=== PATIENT | male | born 1995 | race Caucasian/White ===

== ENCOUNTER 2017-09-14 00:48 | Observation (INO) | payer OTHER ==
[2017-09-14] VITALS (7 sets, daily range): BP systolic 115–136; BP diastolic 70–82; PULSE 63–93; TEMP 36.5–37; O2SAT 94–98; Ht 190.5 cm; Wt 122.9 kg
[~2017-09-14] VITALS: Ht 190.5 cm; Wt 122.9 kg
[2017-09-14] MEDS ORDERED: MoRPHine SULFATE 4 MG/ML 1 ML CARP\\VIAL IV STA (01:04)
[2017-09-14] MEDS ORDERED: SODIUM CHLORIDE 0.9% 1000ML 1,000 ML IV STA ×3 (01:04→02:44)
[2017-09-14] MEDS ORDERED: ONDANSETRON INJ 2 MG/ML 2 ML VIAL IV STA (01:04)
[2017-09-14 01:24] LABS: BASO % 0.2 %; BASO ABS # 0.02 K/uL (0-0.2); EOS % 1.3 %; EOS ABS # 0.15 K/uL (0-0.5); IG# 0.05 K/uL (0.00-0.02); LYMPH % 22.2 %; LYMPH ABS # 2.65 K/uL (1.2-3.4); MEAN CELL VOLUME 83.7 fL (80-100); MEAN CORPUSCULAR HEMOGLOBIN 29.9 pg (25-34); MEAN CORPUSCULAR HGB CONC 35.7 g/dl (32-36); MEAN PLATELET VOLUME 10.7 fL (7.4-10.4); MONO % 7.6 %; MONO ABS # 0.91 K/uL (0.11-0.59); NEUT % 68.3 %; NEUT ABS # 8.16 K/uL (1.4-6.5); PLATELET COUNT 255 K/uL (130-400); RED CELL DISTRIBUTION WIDTH CV 12.3 % (11.5-14.5); RED CELL DISTRIBUTION WIDTH SD 37.5 fL (36.4-46.3); WHITE BLOOD COUNT 11.94 K/uL (4.8-10.8)
[2017-09-14] MEDS ORDERED: DiphenhydrAMINE HCL 50 MG/ML VIAL IV STA (01:40)
[2017-09-14] MEDS ORDERED: METOCLOPRAMIDE HCL INJ 5 MG/ML 2 ML VIAL IV STA (01:40)
[2017-09-14 01:51] LABS: ALBUMIN 4.3 gm/dl (3.4-5.0); CALCIUM 9.4 mg/dl (8.5-10.1); CREATININE 0.94 mg/dl (0.60-1.40); POTASSIUM 3.5 mmol/L (3.5-5.1)
[2017-09-14 01:54] LABS: TOTAL PROTEIN 7.9 gm/dl (6.4-8.2)
[2017-09-14] MEDS ORDERED: OPTIRAY 320 IV PRN (02:00)
[2017-09-14] MEDS ORDERED: CEFOXITIN 2000MG/60 ML D5W IV STA (02:39)
[2017-09-14] MEDS ORDERED: CEFOXITIN SOD 1 GM VIAL ONE (02:43)
[2017-09-14] MEDS ORDERED: NURSING VERBAL MED ORDER ONE ×2 (03:00→13:15)
[2017-09-14] MEDS ORDERED: MoRPHine SULFATE 4 MG/ML 1 ML CARP\\VIAL ONE (03:07)
[2017-09-14] MEDS ORDERED: MoRPHine SULFATE 2 MG/ML CARP IV PRN (04:00)
[2017-09-14] MEDS ORDERED: ONDANSETRON INJ 2 MG/ML 2 ML VIAL IV PRN ×2 (04:00→10:30)
[2017-09-14] MEDS ORDERED: LACTATED RINGER'S 1000ML 1,000 ML IV SCH (04:30)
[2017-09-14] MEDS ORDERED: IV FLUIDS COMPLETED PRN (04:30)
--- NOTE | 2017-09-14 06:24 | EMERGENCY ROOM VISIT NOTE ---
History First contact with patient: 00:56 Chief Complaint: ABDOMINAL PAIN Stated Complaint: ABD PAIN Nursing Triage Summary: Patient reports abdominal pain that began approx 12 hours ago. Patient reports the pain is in LLQ with some nausea. Patient also reports constipation. History of Present Illness The patient is a 22 year old male who presents to the Emergency Room with complaints of nausea with periumbilical pain is now localized to the right lower quadrant for the past 12 hours. He still has appendix. Pain 5 out of 10. Nothing makes it better or worse. It does not radiate. Patient denies fever, chills, cough, congestion, vomiting, diarrhea, back pain, flank pain, urinary symptoms, testicular penile pain. Review of Systems An 10 system review of systems was completed with positives and pertinent negatives listed in the HPI. Past Medical/Surgical History None Social History Smoking Status: Never Smoker Smokeless Tobacco Use: No Drug Use: none Marital Status: single Occupation Status: [employer] student Current/Historical Medications No Active Prescriptions or Reported Meds Physical Exam Vital Signs Date Time Temp Pulse Resp B/P (MAP) Pulse Ox O2 Delivery O2 Flow Rate FiO2 09/14/17 02:12 88 16 120/69 97 Room Air 09/14/17 00:53 36.9 90 16 158/79 96 Room Air Physical Exam VITALS: Vitals are noted on the nurse's note and reviewed by myself. Vital signs hypertensive. GENERAL: Pleasant male, in no acute distress, nondiaphoretic, well-developed well-nourished. SKIN: Capillary reflex less than 2 seconds. HEENT: Normocephalic. PERRLA. EOMI. Nares patent. Mucous membranes moist. Neck is supple without nuchal rigidity. HEART: Regular rate and rhythm without murmurs gallops or rubs. LUNGS: Clear to auscultation bilaterally without wheezes, rales or rhonchi. No retractions or accessory muscle use. ABDOMEN: Positive bowel sounds x 4. Normal tympanic percussion. Soft, tender to palpation right lower quadrant, no CVA tenderness, without masses or organomegaly. Salazar sign negative. No guarding or rebound tenderness. MUSCULOSKELETAL: No gross musculoskeletal defects. NEURO: Patient was alert and oriented to person place and time. Normal sensation to light and sharp touch. No focal neurological deficits. Medical Decision & Procedures Laboratory Results 09/14/17 01:10 Red Blood Count 5.02, Mean Corpuscular Volume 83.7, Mean Corpuscular Hemoglobin 29.9, Mean Corpuscular Hemoglobin Concent 35.7, Mean Platelet Volume 10.7, Neutrophils (%) (Auto) 68.3, Lymphocytes (%) (Auto) 22.2, Monocytes (%) (Auto) 7.6, Eosinophils (%) (Auto) 1.3, Basophils (%) (Auto) 0.2, Neutrophils # (Auto) 8.16, Lymphocytes # (Auto) 2.65, Monocytes # (Auto) 0.91, Eosinophils # (Auto) 0.15, Basophils # (Auto) 0.02 09/14/17 01:10 Test 09/14/17 01:05 09/14/17 01:10 Urine Color YELLOW Urine Appearance CLEAR (CLEAR) Urine pH 6.5 (4.5-7.5) Urine Specific [place] 1.007 (1.000-1.030) Urine Protein NEG (NEG) Urine Glucose (UA) NEG (NEG) Urine Ketones NEG (NEG) Urine Occult Blood NEG (NEG) Urine Nitrite NEG (NEG) Urine Bilirubin NEG (NEG) Urine Urobilinogen NEG (NEG) Urine Leukocyte Esterase NEG (NEG) White Blood Count 11.94 K/uL (4.8-10.8) Red Blood Count 5.02 M/uL (4.7-6.1) Hemoglobin 15.0 g/dL (14.0-18.0) Hematocrit 42.0 % (42-52) Mean Corpuscular Volume 83.7 fL (80-100) Mean Corpuscular Hemoglobin 29.9 pg (25-34) Mean Corpuscular Hemoglobin Concent 35.7 g/dl (32-36) Platelet Count 255 K/uL (130-400) Mean Platelet Volume 10.7 fL (7.4-10.4) Neutrophils (%) (Auto) 68.3 % Lymphocytes (%) (Auto) 22.2 % Monocytes (%) (Auto) 7.6 % Eosinophils (%) (Auto) 1.3 % Basophils (%) (Auto) 0.2 % Neutrophils # (Auto) 8.16 K/uL (1.4-6.5) Lymphocytes # (Auto) 2.65 K/uL (1.2-3.4) Monocytes # (Auto) 0.91 K/uL (0.11-0.59) Eosinophils # (Auto) 0.15 K/uL (0-0.5) Basophils # (Auto) 0.02 K/uL (0-0.2) RDW Standard Deviation 37.5 fL (36.4-46.3) RDW Coefficient of Variation 12.3 % (11.5-14.5) Immature Granulocyte % (Auto) 0.4 % Immature Granulocyte # (Auto) 0.05 K/uL (0.00-0.02) Anion Gap 4.0 mmol/L (3-11) Est Creatinine Clear Calc Drug Dose 178.5 ml/min Estimated GFR () 134.7 Estimated GFR (Non- 116.2 BUN/Creatinine Ratio 19.1 (10-20) Calcium Level 9.4 mg/dl (8.5-10.1) Total Bilirubin 0.7 mg/dl (0.2-1) Direct Bilirubin 0.2 mg/dl (0-0.2) Aspartate Amino Transf (AST/SGOT) 20 U/L (15-37) Alanine Aminotransferase (ALT/SGPT) 49 U/L (12-78) Alkaline Phosphatase 126 U/L (45-117) Total Protein 7.9 gm/dl (6.4-8.2) Albumin 4.3 gm/dl (3.4-5.0) Medications Administered Medications (Trade) Dose Ordered Sig/Nicanor Route Start Time Stop Time Status Last Admin Dose Admin Sodium Chloride 1,000 ml @ 999 mls/hr Q1H1M STAT IV 09/14/17 01:04 09/14/17 02:04 DC 09/14/17 01:10 999 MLS/HR Sodium Chloride 1,000 ml @ 125 mls/hr Q8H STAT IV 09/14/17 01:04 09/14/17 03:55 DC 09/14/17 01:04 125 MLS/HR Ondansetron HCl (Zofran Inj) 4 mg NOW STAT IV 09/14/17 01:04 09/14/17 01:06 DC 09/14/17 01:10 4 MG Morphine Sulfate (MoRPHine SULFATE INJ) 4 mg NOW STAT IV 09/14/17 01:04 09/14/17 01:06 DC 09/14/17 03:09 4 MG Metoclopramide HCl (Reglan Inj) 10 mg NOW STAT IV 09/14/17 01:40 09/14/17 01:42 DC 09/14/17 01:48 10 MG Diphenhydramine HCl (Benadryl Inj) 12.5 mg NOW STAT IV 09/14/17 01:40 09/14/17 01:42 DC 09/14/17 01:49 12.5 MG Cefoxitin Sodium (Mefoxin IV) 2,000 mg STK-MED ONCE .ROUTE 09/14/17 02:43 09/14/17 02:44 DC 09/14/17 02:50 2,000 MG ED Course Prior records/ancillary studies reviewed. Triage Nursing notes reviewed. The patient's history was concerning for abdominal pain. Differential diagnosis: Etiologies such as appendicitis, diverticulitis, PUD, biliary pathology, UTI, pancreatitis, obstruction, mesenteric ischemia, aortic pathology, infections, inflammatory bowel disease, renal colic, as well as others were entertained. Physical examination findings: As above. ER treatment provided: reglan, benadryl, zofran, NSS On reassessment the patient felt better. Diagnostics interpreted by me: The labs revealed Leukocytosis, negative urine Imaging studies: CT concerning for appendicitis Consultation: A consultation was placed with the Dr. Roberson. The case was discussed and diagnostics were reviewed. The patient was evaluated in the ER for further treatment. Exam and history seem consistent with appendicitis. Patient was placed n.p.o. and started antibiotics. Surgery was paged and will admit the patient. Patient is agreeable to treatment plan. By the evaluation outlined above emergent etiologies such as diverticulitis, PUD, biliary pathology, UTI, pancreatitis, obstruction, mesenteric ischemia, aortic pathology,inflammatory bowel disease, renal colic, as well as others were deemed relatively unlikely. The pt informed about the findings as listed above. All questions were answered and pleased with the treatment. Case reviewed with my attending The chart was completed utilizing [employer] voice recognition software. Grammatical errors, random word insertions, pronoun errors, and incomplete sentences are an occassional consequence of this system due to software limitations, ambient noise, and hardware issues. Any formal questions or concerns about the content, text, or information contained within the body of this dictation should be directly addressed to the physician office assistant receptionist for clarification. Medical Decision as above Medication Reconcilliation Current Medication List: was personally reviewed by me Blood Pressure Screening Patient's blood pressure: Elevated blood pressure Blood pressure disposition: Elevated BP felt to be situational Impression Primary Impression: Appendicitis Departure Information Dispostion Being Evaluated By Surgeon Condition GOOD Prescriptions No Active Prescriptions or Reported Meds Referrals Jose Angel Barillas D.O. (PCP) Patient Instructions My [facility] Problem Qualifiers Primary Impression: Appendicitis Appendicitis type: acute appendicitis Acute appendicitis type: with localized peritonitis Qualified Codes: K35.3 - Acute appendicitis with localized peritonitis
--- NOTE | 2017-09-14 07:11 | DIAGNOSTIC IMAGING REPORT ---
ABDOMEN AND PELVIS CT WITH IV CONTRAST CT DOSE: 1232.02 mGy.cm HISTORY: Acute right lower quadrant abdominal pain rlq pain, ? appy TECHNIQUE: Multiaxial CT images of the abdomen and pelvis were performed following the use of intravenous contrast. A dose lowering technique was utilized adhering to the principles of ALARA. COMPARISON STUDY: None. FINDINGS: Lung bases are clear. There is no pneumatosis or pneumoperitoneum. Imaged inferior cardiac chambers are unremarkable. The liver, pancreas and adrenal glands are within normal limits. Contracted gallbladder. Mild splenic likely, 15 cm. Kidneys, ureters and urinary bladder are within normal limits. Aorta appears normal. No bulky adenopathy. No bowel obstruction. Appendix is mildly dilated at 8 mm nicely seen on image 354 series 3 and demonstrates mild periappendiceal inflammatory stranding. Fluid and air is seen within the appendiceal lumen. No associated periappendiceal abscess or perforation. Prominent lymph nodes of the right lower quadrant mesentery measuring up to 10 mm in short axis. IMPRESSION: 1. Air and fluid-filled mildly dilated appendix measures 8 mm in diameter and demonstrates mild periappendiceal inflammatory stranding, suspicious for early acute uncomplicated appendicitis within the appropriate clinical setting. 2. Mildly prominent lymph nodes of the right lower quadrant mesentery are likely reactive. 3. Mild splenomegaly, 15 cm. Electronically signed by: Wolf Grace M.D. 09/14/2017 7:09 AM Dictated Date/Time: 09/14/2017 7:04 AM
[2017-09-14] MEDS ORDERED: CEFOXITIN IV 2,000 MG in DEXTROSE 5% 50ML 50 ML IV SCH (08:00)
[2017-09-14] MEDS ORDERED: LIDOCAINE HCL 1% 20 ML VIAL ONE (08:40)
[2017-09-14] MEDS ORDERED: BACITRACIN OINT 15 GM TUBE ONE (08:40)
[2017-09-14] MEDS ORDERED: BUPIVACAINE 0.5 % 5 MG/1 ML MPF 30ML VIAL ONE (08:40)
[2017-09-14] MEDS ORDERED: PROPOFOL IV EMULSION 10 MG/ML 20 ML VIAL IV ONE (08:45)
[2017-09-14] MEDS ORDERED: SUCCINYLCHOLINE 100MG/5ML SYR IV ONE (08:48)
[2017-09-14] MEDS ORDERED: FENTANYL CITRATE INJ 50 MCG/1 ML 2 ML VIAL ONE ×2 (08:48→09:36)
[2017-09-14] MEDS ORDERED: MIDAZOLAM HCL 1 MG/ML 2ML VIAL ONE (08:49)
--- NOTE | 2017-09-14 09:02 | History & Physical Bridge Note ---
H&P Re-Evaluation Bridge Note: I have examined the patient, reviewed the History & Physical and in the interval since the performance of the History & Physical I have noted the following changes of clinical significance: No changes noted
--- NOTE | 2017-09-14 09:02 | Surgery Consultation ---
Consultation Date of Consultation: Sep 14, 2017. Attending Physician: Alma Roberson MD History of Present Illness pt is a 22 year old male who presents to ER with one day history periumbilical pain and later the pain is located at RLQ, pt had some nausea and vomiting, pt denies fever, no diarrhea, Past Medical/Surgical History Medical Problems: (1) Appendicitis Status: Acute Social History Smoking Status: Never Smoker Smokeless Tobacco Use: No Alcohol Use: none Drug Use: none Marital Status: single Occupation Status: [employer] student Allergies Coded Allergies: No Known Allergies (Unverified , 09/14/17) Home Medications No Active Prescriptions or Reported Meds Current Inpatient Medications Current Inpatient Medications Medications (Trade) Dose Ordered Sig/Nicanor Route Start Time Stop Time Status Last Admin Dose Admin Ioversol (Optiray 320) 100 ml UD PRN IV 09/14/17 02:00 09/18/17 01:59 Morphine Sulfate (MoRPHine SULFATE INJ) 2 mg Q2H PRN IV 09/14/17 04:00 09/28/17 03:59 Ondansetron HCl (Zofran Inj) 4 mg Q6H PRN IV 09/14/17 04:00 10/14/17 03:59 Cefoxitin Sodium 2000 mg/Dextrose 60 ml @ 120 mls/hr Q6H IV 09/14/17 08:00 09/16/17 07:59 Lactated Ringer's 1,000 ml @ 100 mls/hr Q10H IV 09/14/17 04:30 10/14/17 04:29 09/14/17 04:27 100 MLS/HR Miscellaneous (Iv Fluids Completed) 1 ea PRN PRN N/A 09/14/17 04:30 09/14/18 04:29 Review of Systems Constitutional: No fever, No chills, No sweats, No weight loss, No weakness, No fatigue, No problem reported Eyes: No worsening of vision, No eye pain, No redness, No discharge, No diplopia, No problem reported ENT: No hearing loss, No unusual epistaxis, No nasal symptoms, No sore throat, No tinnitus, No dental problems, No trouble swallowing, No problem reported Respiratory: No cough, No sputum, No wheezing, No shortness of breath, No dyspnea on exertion, No dyspnea at rest, No hemoptysis, No problem reported Cardiovascular: No chest pain, No orthopnea, No PND, No edema, No claudication , No palpitations, No problem reported Abdomen: + pain, + nausea, + vomiting Genitourinary - Male: No hematuria, No dysuria, No urinary frequency, No urinary urgency, No urinary hesitancy, No urinary retention, No urinary incontinence, No penile discharge, No lesions, No impotence, No problem reported Neurologic: No memory loss, No paralysis, No weakness, No numbness/tingling, No vertigo, No balance problems, No problem reported Psychiatric: No depression symptoms, No anhedonism, No anxiety, No insomnia, No substance abuse, No problem reported Endocrine: No fatigue, No excessive thirst, No excessive urination, No problem reported Hematologic / Lymphatic: No abnormal bleeding/bruising, No clotting problems, No swollen lymph nodes, No night sweats, No problem reported Integumentary: No rash, No itch, No new/changing skin lesions, No color change , No bleeding, No problem reported Allergic / Immunologic: No environmental allergies, No seasonal allergies, No pet sensitivities, No food allergies, No hives, No frequent infections, No poor healing, No prolonged convalescence, No problem reported Physical Exam Date Time Temp Pulse Resp B/P (MAP) Pulse Ox O2 Delivery O2 Flow Rate FiO2 09/14/17 08:14 36.7 63 16 121/70 (87) 97 Room Air 09/14/17 04:15 36.6 70 18 115/77 97 Room Air 09/14/17 03:52 37.3 86 18 126/72 98 Room Air 09/14/17 02:12 88 16 120/69 97 Room Air 09/14/17 00:53 36.9 90 16 158/79 96 Room Air General Appearance: WD/WN, no apparent distress Head: normocephalic Eyes: normal inspection ENT: normal ENT inspection Neck: supple, no JVD Respiratory/Chest: chest non-tender, lungs clear, normal breath sounds Cardiovascular: regular rate, rhythm, no edema, no gallop, no JVD, no murmur Abdomen/GI: normal bowel sounds, soft, no organomegaly, no pulsatile mass, + tenderness (at RLQ, no rebound pain) Extremities/Musculoskelatal: normal inspection, no calf tenderness, normal capillary refill Neurologic/Psych: no motor/sensory deficits, alert, normal mood/affect, oriented x 3 Skin: normal color, warm/dry, no rash Laboratory Results Last 24 Hours Test 09/14/17 01:05 09/14/17 01:10 Urine Color YELLOW Urine Appearance CLEAR Urine pH 6.5 Urine Specific [place] 1.007 Urine Protein NEG Urine Glucose (UA) NEG Urine Ketones NEG Urine Occult Blood NEG Urine Nitrite NEG Urine Bilirubin NEG Urine Urobilinogen NEG Urine Leukocyte Esterase NEG White Blood Count 11.94 K/uL Red Blood Count 5.02 M/uL Hemoglobin 15.0 g/dL Hematocrit 42.0 % Mean Corpuscular Volume 83.7 fL Mean Corpuscular Hemoglobin 29.9 pg Mean Corpuscular Hemoglobin Concent 35.7 g/dl Platelet Count 255 K/uL Mean Platelet Volume 10.7 fL Neutrophils (%) (Auto) 68.3 % Lymphocytes (%) (Auto) 22.2 % Monocytes (%) (Auto) 7.6 % Eosinophils (%) (Auto) 1.3 % Basophils (%) (Auto) 0.2 % Neutrophils # (Auto) 8.16 K/uL Lymphocytes # (Auto) 2.65 K/uL Monocytes # (Auto) 0.91 K/uL Eosinophils # (Auto) 0.15 K/uL Basophils # (Auto) 0.02 K/uL RDW Standard Deviation 37.5 fL RDW Coefficient of Variation 12.3 % Immature Granulocyte % (Auto) 0.4 % Immature Granulocyte # (Auto) 0.05 K/uL Sodium Level 134 mmol/L Potassium Level 3.5 mmol/L Chloride Level 104 mmol/L Carbon Dioxide Level 26 mmol/L Anion Gap 4.0 mmol/L Blood Urea Nitrogen 18 mg/dl Creatinine 0.94 mg/dl Est Creatinine Clear Calc Drug Dose 178.5 ml/min Estimated GFR () 134.7 Estimated GFR (Non- 116.2 BUN/Creatinine Ratio 19.1 Random Glucose 100 mg/dl Calcium Level 9.4 mg/dl Total Bilirubin 0.7 mg/dl Direct Bilirubin 0.2 mg/dl Aspartate Amino Transf (AST/SGOT) 20 U/L Alanine Aminotransferase (ALT/SGPT) 49 U/L Alkaline Phosphatase 126 U/L Total Protein 7.9 gm/dl Albumin 4.3 gm/dl Assessment & Plan CT scan-FINDINGS: Lung bases are clear. There is no pneumatosis or pneumoperitoneum. Imaged inferior cardiac chambers are unremarkable. The liver, pancreas and adrenal glands are within normal limits. Contracted gallbladder. Mild splenic likely, 15 cm. Kidneys, ureters and urinary bladder are within normal limits. Aorta appears normal. No bulky adenopathy. No bowel obstruction. Appendix is mildly dilated at 8 mm nicely seen on image 354 series 3 and demonstrates mild periappendiceal inflammatory stranding. Fluid and air is seen within the appendiceal lumen. No associated periappendiceal abscess or perforation. Prominent lymph nodes of the right lower quadrant mesentery measuring up to 10 mm in short axis. IMPRESSION: 1. Air and fluid-filled mildly dilated appendix measures 8 mm in diameter and demonstrates mild periappendiceal inflammatory stranding, suspicious for early acute uncomplicated appendicitis within the appropriate clinical setting. 2. Mildly prominent lymph nodes of the right lower quadrant mesentery are likely reactive. 3. Mild splenomegaly, 15 cm. Assessment: pt is a 22 roly old male who presents to Er with ond day history abdominal pain with nausea and vomiting, CT scan Dx- acute appendicitis IMP: acute appendicitis Plan I recommend to do laparoscopic appendectomy, possible open, D/W benefits, risks and alternatives of the procedure, the risks - infection, bleeding, abscess, pt understood, he agrees with the surgery, I answered all questions,
[2017-09-14] MEDS ORDERED: CISATRACURIUM BESYLATE IV SOLN 2 MG/ML 10 ML VIAL ONE (09:50)
[2017-09-14] MEDS ORDERED: ONDANSETRON INJ 2 MG/ML 2 ML VIAL ONE (09:51)
[2017-09-14] MEDS ORDERED: DEXAMETHASONE SOD INJ 4 MG/ML VIAL ONE (09:52)
--- NOTE | 2017-09-14 09:55 | [facility] Post Operative Brief Note ---
Immediate Operative Summary Operative Date Sep 14, 2017. Pre-Operative Diagnosis acute Appendicitis Post-Operative Diagnosis Same Procedure(s) Performed Laparoscopic Appendectomy Surgeon Dr York Cutting Machine Tender Helper Surgeon(s) Bindu Guzman PA-C Estimated Blood Loss 5ml Findings Consistent with Post-Op Diagnosis acute appendicitis Fluids (cc crystalloids) 1000ml Specimens A. Appendix Drains None Anesthesia Type General Complication(s) none Disposition Accompanied Pt To Recover: yes Disposition: Recovery Room / PACU
[2017-09-14] MEDS ORDERED: GLYCOPYRROLATE INJ 0.2 MG/ML VIAL ONE (09:57)
[2017-09-14] MEDS ORDERED: NEOSTIGMINE METHYLSULFATE 5 MG/5 ML SYR ONE (09:57)
[2017-09-14] MEDS ORDERED: OXYCODONE/ACETAMINOPHEN 5-325 TAB PO PRN ×2 (10:15→11:00)
[2017-09-14] MEDS ORDERED: NALOXONE HCL 0.4 MG/1 ML VIAL/CARP IV PRN (10:30)
[2017-09-14] MEDS ORDERED: ATROPINE SULFATE 0.1 MG/ML 5ML SYR IV PRN (10:30)
[2017-09-14] MEDS ORDERED: PROMETHAZINE HCL INJ 12.5 MG in SODIUM CHLORIDE 0.9% 50ML 50 ML IV PRN (10:30)
[2017-09-14] MEDS ORDERED: FLUMAZENIL 0.1 MG/1 ML 10 ML VIAL IV PRN (10:30)
[2017-09-14] MEDS ORDERED: FENTANYL CITRATE INJ 50 MCG/1 ML 2 ML VIAL IV PRN (10:30)
[2017-09-14] MEDS ORDERED: EpHEDrine SULFATE INJ 50 MG/ML AMP IV PRN (10:30)
--- NOTE | 2017-09-14 10:54 | OPERATIVE REPORT ---
DATE OF OPERATION: 09/14/2017 PREOPERATIVE DIAGNOSIS: Acute appendicitis. POSTOPERATIVE DIAGNOSIS: Acute appendicitis. OPERATION: Laparoscopic appendectomy. SURGEON: Dr. Brenda York THROAT CUTTER: TANYA Gonzalez ANESTHESIA: General. ESTIMATED BLOOD LOSS: About 5 mL. FINDINGS: Acute appendicitis. COMPLICATIONS: None. INDICATIONS FOR THE PROCEDURE: This is a 22 years old gentleman who presented to the ER with a 1-day history of abdominal pain. The patient had a CT scan diagnosis of acute appendicitis. I recommended to do laparoscopic appendectomy, possible open. I did talk to the patient about the benefits, risks, and alternates to the procedure. I indicated the risks may include but not limited such as bleeding, infection, and abscess. The patient understands. He signed informed consent, he agreed to proceed with the procedure. I answered all questions. DETAILS OF PROCEDURE: We brought the patient to the OR, put the patient in the supine position. The patient received SCDs on bilateral legs to prevent DVT. Also, the patient received 2 g of cefoxitin IV for prophylactic antibiotic. The patient received general anesthesia without difficulty. The patient received a Lombardo catheter insertion. The abdomen was prepped and draped in routine sterile fashion. After time-out, I injected the local anesthesia by using 1% lidocaine mixed with 0.5% Marcaine just above the umbilicus. Then I made a small incision just above the umbilicus, opened the fascia, and opened the peritoneum. Under direct vision, put a Pawan trocar in, connected to CO2 to create pneumoperitoneum flow rate at 6 L per minute, pressure not more than 14 mmHg. Once we got a nice pneumoperitoneum, we put the camera in, looked around the abdomen, showing normal finding of the stomach, liver, small bowel, large bowel, however, the appendix was swollen, inflammation, showing acute appendicitis. Then, we put another three 5 mm trocars on the left lower quadrant and then we put a grasper in, hold the appendix and used the harmonic to take down the appendiceal, rechecked, no active bleeding. Then I used a 40 mm Endo-GLEN staple for transection on the base of the appendix, rechecked, no active bleeding, no leak. Then we removed the appendix through the catch bag. Then we reinserted the Pawan trocar and connected to CO2, again looked around the abdomen showing no active bleeding, no leak from the staple line. Then we removed all trocar under direct vision. No active bleeding from trocar sites. Pneumoperitoneum was released. Then we closed the umbilical incision and fascial layer by using #1 Vicryl [id number] x2, closed the subcutaneous layer by using 2-0 Vicryl interrupted, and closed the skin by using 4-0 Vicryl continuous running, closed another two 5 mm trocar sites of the skin only by using 4-0 Vicryl. Then we put the dressing on. The patient tolerated the procedure well. The Lombardo catheter was removed. All the instrument, needle, and sponge count were correct x2 at the end of the case. The patient was transferred to recovery room in stable condition. I attest to the content of the Intraoperative Record and any orders documented therein. Any exception s are noted below.
--- NOTE | 2017-09-14 10:57 | Anesthesiology Progress Note ---
Anesthesia Post Op Note Date & Time Sep 14, 2017 at 10:57 Vital Signs Pain Intensity: 0 Vital Signs Past 12 Hours Date Time Temp Pulse Resp B/P (MAP) Pulse Ox O2 Delivery O2 Flow Rate FiO2 09/14/17 10:50 63 16 132/56 99 Nasal Cannula 2 09/14/17 10:40 65 15 133/65 99 Nasal Cannula 2 09/14/17 10:30 59 18 128/64 99 Nasal Cannula 2 09/14/17 10:20 36.5 78 16 144/74 95 Nasal Cannula 2 09/14/17 08:14 36.7 63 16 121/70 (87) 97 Room Air 09/14/17 07:45 Room Air 09/14/17 04:15 36.6 70 18 115/77 97 Room Air 09/14/17 03:52 37.3 86 18 126/72 98 Room Air 09/14/17 02:12 88 16 120/69 97 Room Air 09/14/17 00:53 36.9 90 16 158/79 96 Room Air Notes Mental Status: alert / awake / arousable, participated in evaluation Pt Amnestic to Procedure: Yes Nausea / Vomiting: adequately controlled Pain: adequately controlled Airway Patency, RR, SpO2: stable & adequate BP & HR: stable & adequate Hydration State: stable & adequate Anesthetic Complications: no major complications apparent
[2017-09-14] MEDS ORDERED: ACETAMINOPHEN 325 MG TAB PO PRN (11:00)
--- NOTE | 2017-09-14 11:04 | Discharge Instructions ---
Discharge Instructions Date of Service Sep 14, 2017. Admission Reason for Admission: Appendicitis Discharge Discharge Diagnosis / Problem: same Discharge Goals Goal(s): Decrease discomfort, Improve function Activity Recommendations Activity Limitations: per Instructions/Follow-up section No heavy lifting over 20 pounds for 3-4 weeks No strenuous activity until cleared by surgeon No submerging incisions underwater for 2 weeks (no bathing, swimming, or hot tubs) No driving while taking narcotic pain medication or until you are pain free . Instructions / Follow-Up Instructions / Follow-Up You may shower in 3 days, sponge bath and wash hair in meantime After 3 days shower and remove outer dressings. Leave steri strips on incisions for 7 days and then remove. They may fall off on their own that is okay. Walking and light activity is encouraged to prevent blood clots from forming You will be given narcotic pain medication to take as needed for moderate to severe pain. This medication may make you drowsy and can cause constipation. To combat constipation, drink plenty of water, you may take OTC stool softener such as Colace, gentle laxative, or prune juice. More mild pain, you may take extra strength Tylenol or Ibuprofen Follow-up in surgical office in 1 week, please call office at [phone] to make an appointment. Current Hospital Diet Patient's current hospital diet: Clear Liquid Diet Discharge Diet Recommended Diet: Regular Diet Procedures Procedures Performed: Laparoscopic Appendectomy Pending Studies Studies pending at discharge: yes List of pending studies: appendix pathology will be reviewed at follow up visit Medical Emergencies . Who to Call and When: Medical Emergencies: If at any time you feel your situation is an emergency, please call 911 immediately. . Non-Emergent Contact Non-Emergency issues call your: Primary Care Provider, Surgeon Call Non-Emergent contact if: you have a fever, temperature is above 101, your pain is not controlled, your pain is worsening, your pain is unusual for you, wound has increased drainage, wound has increased redness, wound has increased pain . "Provider Documentation" section prepared by Binud Guzman. . [place] Drug Monitoring Program Search Results: patient reviewed within database, no issues identified
[2017-09-14] MEDS ORDERED: OXYC-57 PO (14:35)
--- NOTE | 2017-09-14 15:21 | Discharge Summary ---
Discharge Summary Dates Admission Date / Time: Sep 14, 2017 at 03:09 Discharge Date: Sep 14, 2017 Dispostion / Condition Discharge Disposition: Home Condition at Discharge: Good Principal Diagnosis (1) Appendicitis Problem List (1) No active medical problems Consultations / Procedures Consultations: None Procedures: Laparoscopic Appendectomy Vaccinations: None Pending Studies / Follow-Up Appendix pathology, will be reviewed at follow up visit Medication Reconciliation New Medications: Oxycodone/Acetaminophen 5MG/325MG (Percocet 5MG/325MG) Tab 1 TABLET PO Q4H PRN for Pain, #18 TAB Admission HPI Per the Admitting provider: pt is a 22 year old male who presents to ER with one day history periumbilical pain and later the pain is located at RLQ, pt had some nausea and vomiting, pt denies fever, no diarrhea, Hospital Course (1) Appendicitis Patient was taken to operating room for laparoscopic appendectomy possible open by Dr. York. Patient found to have early acute appendicitis. Patient tolerated procedure well without any complications. Patient was transferred to PACU and then back to medical/surgical floor in stable condition. Patient's diet was advanced to clears liquids, IV fluids, IV pain medication with po Percocet as needed for pain, IV Zofran as needed for nausea and activity as tolerated. IV antibiotics were discontinued. Patient tolerated clears and diet advanced as tolerated. Urinating without difficulty. ambulating and pain controlled without any pain medication. Patient was evaluated in the afternoon on operative day and was doing fine. No pain, tolerated diet, urinating and ambulating. Patient was discharge home on POD # 0 in stable condition. Discharge Instructions as given to patient Copies To Primary Care Provider: Jose Angel Barillas D.O.. Problem Qualifiers (1) Appendicitis: Appendicitis type: acute appendicitis Acute appendicitis type: with localized peritonitis Qualified Codes: K35.3 - Acute appendicitis with localized peritonitis
== END 2017-09-14 15:31 | disposition home or self-care (01) ==
LOC: C.EDB 00:50 → C.MSN 03:09 → ENRESERV 03:49
PROVIDERS: ADMIT Surgery; ATTEND Surgery
DX: K35.3 Acute appendicitis with localized peritonitis (principal)